=== PATIENT | male | born 1980 | race Caucasian/White ===

== ENCOUNTER 2024-06-18 19:33 | Inpatient (IN) | payer OTHER ==
--- NOTE | 2024-06-18 20:42 | XR ---
EXAMINATION TYPE: XR chest 2V DATE OF EXAM: 06/18/2024 8:36 PM CLINICAL INDICATION: Male, 44 years old with history of Chest Pain; COMPARISON: None TECHNIQUE: XR chest 2V Frontal view of the chest. FINDINGS: Lungs/Pleura: There is no evidence of pleural effusion, focal consolidation, or pneumothorax. Pulmonary vascularity: Unremarkable. Heart/mediastinum: Cardiomediastinal silhouette is unremarkable. Musculoskeletal: No acute osseous pathology. Other findings: None IMPRESSION: Low lung volumes with a generalized hazy appearance which could represent atelectasis versus pulmonar y edema correlate with serum BNP.
[2024-06-18 20:43] LABS: Basophils # (A) 0.1 k/uL (0-0.2); Basophils % (A) 1 %; Eosinophils # (A) 0.4 k/uL (0-0.7); Eosinophils % (A) 3 %; HCT 47.6 % (39.0-53.0); HGB 15.9 gm/dL (13.0-17.5); Lymphocytes # (A) 3.3 k/uL (1.0-4.8); Lymphocytes % (A) 29 %; MCH 30.1 pg (25.0-35.0); MCHC 33.4 g/dL (31.0-37.0); MCV 89.9 fL (80.0-100.0); Mean Platelet Volume 7.2; Monocytes # (A) 0.7 k/uL (0-1.0); Monocytes % (A) 6 %; Neutrophils # (A) 6.6 k/uL (1.3-7.7); Neutrophils % (A) 58 %; Platelet Count 334 k/uL (150-450); RBC 5.29 m/uL (4.30-5.90); RDW 12.8 % (11.5-15.5); WBC 11.4 k/uL (3.8-10.6)
[2024-06-18 20:51] LABS: INR 0.9 (<1.2); Partial Thromboplastin Time 27.1 sec (22.0-30.0); Prothrombin Time 9.9 sec (10.0-12.5)
[2024-06-18 20:56] LABS: ALT 34 U/L (4-49); African American GFR (CKD) >90 (>60 ml/min/1.73 sqM); Albumin 4.4 g/dL (3.5-5.0); Anion Gap 8 mmol/L; Blood Urea Nitrogen 13 mg/dL (9-20); Calcium 9.8 mg/dL (8.4-10.2); Carbon Dioxide 27 mmol/L (22-30); Chloride 100 mmol/L (98-107); Lipase 151 U/L (23-300); Non-African American GFR(CKD) >90 (>60 ml/min/1.73 sqM); Sodium 135 mmol/L (137-145); Total Bilirubin 0.5 mg/dL (0.2-1.3); Total Protein 7.4 g/dL (6.3-8.2)
[2024-06-18 21:08] LABS: AST 27 U/L (17-59); Alkaline Phosphatase 84 U/L (38-126); Glucose 502 mg/dL (74-99); Potassium 4.3 mmol/L (3.5-5.1)
--- NOTE | 2024-06-18 21:08 | ED ---
Chest Pain HPI - General Chief Complaint: Chest Pain Stated Complaint: Chest Pain Time Seen by Provider: 06/18/24 19:40 Source: patient Mode of arrival: ambulatory Limitations: no limitations - History of Present Illness Initial Comments: 44-year-old male with past medical history of hypertension, diabetes who presents emergency department with chest pain. States that he started having chest pain last Friday. The pain is described as a sharp squeezing sensation which starts in the middle of his chest and radiates to his left arm. The attacks will last for about 15 minutes before they subside. He denies taking any medications to alleviate the symptoms. He denies any provocative factors. He denies associated shortness of breath. No nausea or vomiting. No diaphoresis. He has no history of cardiac disease. He does have hypertension and diabetes and is supposed to take prescribed medications but does not. He did have an episode of chest pain this evening which prompted him to come into the emergency department but denies any active chest pain at this time. No history of DVT or PE. No calf pain or swelling. No other alleviating, precipitating or modifying factors - Related Data Home Medications Medication Instructions Recorded Confirmed No Known Home Medications 06/18/24 06/18/24 Allergies Allergy/AdvReac Type Severity Reaction Status Date / Time No Known Allergies Allergy Verified 06/18/24 20:13 Review of Systems ROS Statement: Those systems with pertinent positive or pertinent negative responses have been documented in the HPI. ROS Other: All systems not noted in ROS Statement are negative. Past Medical History Past Medical History: Diabetes Mellitus History of Any Multi-Drug Resistant Organisms: None Reported Past Surgical History: No Surgical Hx Reported Smoking Status: Current every day smoker Past Alcohol Use History: Occasional Past Drug Use History: None Reported General Exam Limitations: no limitations General appearance: alert, in no apparent distress Head exam: Present: atraumatic, normocephalic, normal inspection Eye exam: Present: normal appearance, PERRL, EOMI. Absent: scleral icterus, conjunctival injection, periorbital swelling ENT exam: Present: normal exam, mucous membranes moist Neck exam: Present: normal inspection. Absent: tenderness, meningismus, lymphadenopathy Respiratory exam: Present: normal lung sounds bilaterally. Absent: respiratory distress, wheezes, rales, rhonchi, stridor Cardiovascular Exam: Present: regular rate, normal rhythm, normal heart sounds. Absent: systolic murmur, diastolic murmur, rubs, gallop, clicks GI/Abdominal exam: Present: soft, normal bowel sounds. Absent: distended, tenderness, guarding, rebound, rigid Extremities exam: Present: normal inspection, full ROM, normal capillary refill. Absent: tenderness, pedal edema, joint swelling, calf tenderness Back exam: Present: normal inspection Neurological exam: Present: alert, oriented X3, CN II-XII intact Psychiatric exam: Present: normal affect, normal mood Skin exam: Present: warm, dry, intact, normal color. Absent: rash Course Vital Signs 06/18/24 06/18/24 06/18/24 19:35 20:05 21:40 Temperature 98.1 F Pulse Rate 85 91 90 Respiratory 18 20 18 Rate Blood Pressure 211/118 171/104 166/105 O2 Sat by Pulse 97 95 94 L Oximetry Chest Pain MDM - MDM Was pt. sent in by a medical professional or institution (, PA, CONTENT CREATION MANAGER, urgent care, hospital, or [facility]...) When possible be specific @ -No Did you speak to anyone other than the patient for history (EMS, parent, family, police, friend...)? What history was obtained from this source @ -Spoke with the patient's Did you review nursing and triage notes (agree or disagree)? Why? @ -I reviewed and agree with nursing and triage notes Were old charts reviewed (outside hosp., previous admission, EMS record, old EKG, old radiological studies, urgent care reports/EKG's, [facility] records)? Report findings @ -No old charts were reviewed Differential Diagnosis (chest pain, altered mental status, abdominal pain women, abdominal pain men, vaginal bleeding, weakness, fever, dyspnea, syncope, headache, dizziness, GI bleed, back pain, seizure, CVA, palpatations, mental health, musculoskeletal)? @ -Differential Chest Pain: Stable Angina, Unstable Angina, STEMI, NSTEMI Aortic Dissection, Pneumothorax, M usculoskeletal, Esophageal Spasm GERD, Cholecystitis, Pancreatitis, Zoster, this is not meant to be an all-inclusive list. EKG interpreted by me (3pts min.). @ -Yes and demonstrates sinus rhythm with a rate of 88. CA interval 174. QRS 96. QTc of 379. No acute ST segment elevations or depressions X-rays interpreted by me (1pt min.). @ -Yes and demonstrates hazy appearanceatelectasis versus pulmonary edema CT interpreted by me (1pt min.). @ -None done U/S interpreted by me (1pt. min.). @ -None done What testing was considered but not performed or refused? (CT, X-rays, U/S, labs)? Why? @ -None What meds were considered but not given or refused? Why? @ -None Did you discuss the management of the patient with other professionals (professionals i.e. DrKatlin, PA, CONTENT CREATION MANAGER, lab, RT, psych nurse, perinatal social worker, electrophysiology tech, teacher, corporation officer, mental health case manager)? Give summary @ -Discussed the case with Dr. Apple. Spoke with Dr. Coleman Was smoking cessation discussed for >3mins.? @ -No Was critical care preformed (if so, how long)? @ -yes, 35 minutes for nstemi Were there social determinants of health that impacted care today? How? (Homelessness, low income, unemployed, alcoholism, drug addiction, transportation, low edu. Level, literacy, decrease access to med. care, fci, rehab)? @ -No Was there de-escalation of care discussed even if they declined (Discuss DNR or withdrawal of care, Hospice)? DNR status @ -No What co-morbidities impacted this encounter? (DM, HTN, Smoking, COPD, CAD, Cancer, CVA, ARF, Chemo, Hep., AIDS, mental health diagnosis, sleep apnea, morbid obesity)? @ -Untreated hypertension and diabetes Was patient admitted / discharged? Hospital course, mention meds given and route, prescriptions, significant lab abnormalities, going to OR and other pertinent info. @ -Upon arrival patient seen and evaluated in room 1. Thorough history and physical exam was performed. Patient placed on continuous pulse ox and cardiac monitoring. Twelve-lead EKG is obtained. Laboratory studies are conducted. Cardiac enzyme is elevated. Patient is heparinized as he has no contraindications. No active chest pain at this time. He already took 324 mg aspirin this morning. Patient given a beta-audie for his hypertension. Spoke with Dr. Apple. Patient will be made n.p.o. at midnight. Echo was ordered. Patient will be admitted to Dr. Coleman Undiagnosed new problem with uncertain prognosis? @ -No Drug Therapy requiring intensive monitoring for toxicity (Heparin, Nitro, Insulin, Cardizem)? @ -No Were any procedures done? @ -No Diagnosis/symptom? @ -Acute chest pain, NSTEMI Acute, or Chronic, or Acute on Chronic? @ -Acute Uncomplicated (without systemic symptoms) or Complicated (systemic symptoms)? @ -Complicated Side effects of treatment? @ -No Exacerbation, Progression, or Severe Exacerbation? @ -No Poses a threat to life or bodily function? How? (Chest pain, [place], [place], pneumonia, PE, COPD, DKA, ARF, appy, cholecystitis, CVA, Diverticulitis, Homicidal, Suicidal, threat to staff... and all critical care pts) @ -Yes as patient has diagnosed NSTEMI Disposition Clinical Impression: Chest pain, NSTEMI (non-ST elevated myocardial infarction), Hyperglycemia Disposition: ADMITTED IP TO THIS [facility] Condition: Serious Is patient prescribed a controlled substance at d/c from ED?: No Time of Disposition: 22:10 Decision to Admit Reason: Admit from EC Decision Date: 06/18/24 Decision Time: 22:10
[2024-06-18] MEDS: HEPARIN SODIUM 1,000 UN/ML (10ML VL) IV ONE (21:34)
[2024-06-18] MEDS: HEPARIN SOD,PORK IN 0.45% NACL 25,000 UNIT in 0.45% NACL 1 250ML.BAG IV SCH (21:34)
[2024-06-18] MEDS ORDERED: DEXTROSE 50% SYRINGE 50 ML IVP PRN ×2 (22:05)
[2024-06-18] MEDS ORDERED: NALOXONE 0.4 MG/ML 1 ML VIAL IV PRN (22:10)
[2024-06-18] MEDS: INSULIN ASPART (NovoLOG) 100 UNIT/ML VIAL SQ SCH (22:34)
[2024-06-18 22:39] LABS: Glucose,Whole Blood 340 mg/dL (70-110)
[2024-06-18] MEDS: SODIUM CHLORIDE 0.9% 1,000 ML IV SCH (23:03)
[2024-06-18] MEDS: METOPROLOL TARTRATE 50 MG TAB PO STA (23:03)
[2024-06-19 03:22] LABS: Basophils # (A) 0.1 k/uL (0-0.2); Basophils % (A) 1 %; Eosinophils # (A) 0.4 k/uL (0-0.7); Eosinophils % (A) 4 %; HCT 44.3 % (39.0-53.0); Lymphocytes # (A) 4.6 k/uL (1.0-4.8); Lymphocytes % (A) 42 %; MCH 30.4 pg (25.0-35.0); MCV 89.4 fL (80.0-100.0); Mean Platelet Volume 7.3; Monocytes # (A) 0.7 k/uL (0-1.0); Monocytes % (A) 6 %; Neutrophils # (A) 4.9 k/uL (1.3-7.7); Neutrophils % (A) 45 %; Platelet Count 310 k/uL (150-450); RBC 4.95 m/uL (4.30-5.90); RDW 13.2 % (11.5-15.5); WBC 10.8 k/uL (3.8-10.6)
[2024-06-19 03:27] LABS: Partial Thromboplastin Time 29.1 sec (22.0-30.0); Prothrombin Time 10.7 sec (10.0-12.5)
[2024-06-19] MEDS: HEPARIN SODIUM 1,000 UN/ML (10ML VL) IV PRN (04:43)
[2024-06-19 06:16] LABS: Glucose,Whole Blood 290 mg/dL (70-110)
[2024-06-19] MEDS: INSULIN ASPART (NovoLOG) 100 UNIT/ML VIAL SQ SCH (06:49)
[2024-06-19] MEDS ORDERED: INSULIN ASPART (NovoLOG) 100 UNIT/ML VIAL SQ SCH (07:30)
[2024-06-19] MEDS: ASPIRIN 81 MG PO SCH (08:53)
[2024-06-19] MEDS ORDERED: ALPRAZolam 0.25 MG TAB PO PRN (09:59)
[2024-06-19] MEDS ORDERED: NITROGLYCERIN SL TABS 0.4 MG TAB SUBLINGUAL PRN (09:59)
[2024-06-19] MEDS ORDERED: ALPRAZolam 0.5 MG TAB PO PRN (09:59)
--- NOTE | 2024-06-19 09:59 | P.CRDCN ---
History of Present Illness Consult date: 06/19/24 Reason for Consult (text): NSTEMI History of present illness: This is a 44-year-old male with past medical history of diabetes mellitus type 2 and hypertension but not taking medications, and tobacco use and dependence. Patient presented to the emergency center due to chest pain in the across middle of his chest and radiating to both arms. Pains started last Friday on and off. He thinks it sometimes is related to activity and can stop and pain resolves. It can also happen randomly. The pain lasted for about 15 minutes and then subsid es. No previous history of cardiac disease and no FMH of CAD. He has radiation to the bilateral arms to the back of the upper arms. No nausea, no sweats and no shortness of breath. Regarding diabetes, he has been a diabetic for 3 to 4 years and not taking medications was supposed to be on metformin. He is also had high blood pressure without medication. He is currently a smoker. He drinks 8-9 beers per week. He denies any drug use or marijuana use. Initial blood pressure 211/118. Blood pressure 147/87, heart rate 75, pulse ox 99% on room air. Patient has been started on heparin drip and status post 1 dose of Lopressor. EKG: Sinus rhythm with no acute ST-T wave changes. Chest x-ray: Possible atelectasis versus pulmonary edema. Laboratory studies: Initial WBC 11.4 now 10.8, hemoglobin 15. Sodium 135, potassium 4.3, creatinine 0.63. Troponin 0.113, 0.172 and 0.242. Magnesium 2 .0. Liver function test normal. Lipase 151. proBNP 63. Patient presented with blood sugar of 502. Home cardiac medications: None Review Of Systems: At the time of my exam: CONSTITUTIONAL: Denies fever or chills. HEENT: Denies blurred vision, vision changes, or eye pain. Denies hemoptysis CARDIOVASCULAR: Denies chest pain. Denies orthopnea. Denies PND. Denies palpitations RESPIRATORY: Denies shortness of breath. GASTROINTESTINAL: Denies abdominal pain. Denies nausea or vomiting. HEMATOLOGIC: Denies bleeding disorders. GENITOURINARY: Denies any blood in urine. SKIN: Denies puritis. Denies rash. Physical examination: Gen: This is a morbidly obese 44-year-old male in no acute distress VS: reviewed HEENT: Head is atraumatic, normocephalic. Pupils equal, round. Sclerae is anicteric. NECK: Supple. No JVD. LUNGS: Clear to auscultation. No wheezes or rhonchi. No intercostal retractio ns. HEART: Regular rate and rhythm. No murmur. ABDOMEN: Soft No tenderness. EXTREMITIES: No pedal edema. No calf tenderness. NEUROLOGICAL: Patient is awake, alert and oriented x3. Assessment: Non-ST elevated [place] Diabetes mellitus type 2, A1C pending Hypertension Tobacco use and dependence Morbid obesity Medical noncompliance Plan: Continue heparin drip Start patient on aspirin 81 mg daily, Lipitor 80 mg daily, losartan 25 mg dailly Obtain TSH and free T4 Obtain lipid panel Obtain 2-D echocardiogram and Doppler study to assess cardiac structure and function Schedule patient for cardiac catheterization today with Dr. Pascal Smoking cessation discussed with the patient Medical compliance discussed with the patient Further recommendations to follow based upon clinical course Thank you kindly for this consultation. Nurse practitioner note has been reviewed, I agree with documented findings and plan of care. Patient was seen and examined. Past Medical History Past Medical History: Diabetes Mellitus History of Any Multi-Drug Resistant Organisms: None Reported Past Surgical History: No Surgical Hx Reported Past Psychological History: No Psychological Hx Reported Smoking Status: Current every day smoker Past Alcohol Use History: Occasional Past Drug Use History: None Reported Medications and Allergies Home Medications Medication Instructions Recorded Confirmed Type No Known Home Medications 06/18/24 06/18/24 History Allergies Allergy/AdvReac Type Severity Reaction Status Date / Time No Known Allergies Allergy Verified 06/18/24 20:13 Physical Exam Vitals: Vital Signs Temp Pulse Pulse Resp BP BP Pulse Ox 06/19/24 04:00 97.6 F 75 18 147/87 99 06/19/24 02:00 76 06/18/24 23:42 97.6 F 76 18 133/82 96 06/18/24 23:06 88 20 154/103 94 L 06/18/24 21:40 90 18 166/105 94 L 06/18/24 20:05 91 20 171/104 95 06/18/24 19:35 98.1 F 85 18 211/118 97 Intake and Output 06/18/24 06/19/24 06/19/24 22:59 06:59 14:59 Intake Total 71.566 Balance 71.566 Intake: Intake, IV Titration 71.566 Amount Heparin Sod,Pork in 0.45% 71.566 NaCl 25,000 unit In 0.45 % NaCl 1 250ml.bag @ 6.88 UNITS/KG/HR 9.986 mls/hr IV .Q24H [facility] Rx#: [id number] Other: Voiding Method Toilet Weight 145.15 kg 136.3 kg Results 06/19/24 03:09 06/18/24 20:26 Cardiac Enzymes 06/18/24 06/18/24 06/18/24 Range/Units 20:26 20: 23:44 AST 27 (17-59) U/L Troponin I 0.113 H* 0.172 H* (0.000-0.034) ng/mL 06/19/24 Range/Units 03:09 AST (17-59) U/L Troponin I 0.242 H* (0.000-0.034) ng/mL Coagulation 06/18/24 06/19/24 Range/Units 20:26 03:09 PT 9.9 L 10.7 (10.0-12.5) sec APTT 27.1 29.1 (22.0-30.0) sec CBC 06/18/24 06/19/24 Range/Units 20:26 03:09 WBC 11.4 H 10.8 H (3.8-10.6) k/uL RBC 5.29 4.95 (4.30-5.90) m/uL Hgb 15.9 15.0 (13.0-17.5) gm/dL Hct 47.6 44.3 (39.0-53.0) % Plt Count 334 310 (150-450) k/uL Comprehensive Metabolic Panel 06/18/24 Range/Units 20:26 Sodium 135 L (137-145) mmol/L Potassium 4.3 (3.5-5.1) mmol/L Chloride 100 (98-107) mmol/L Carbon Dioxide 27 (22-30) mmol/L BUN 13 (9-20) mg/dL Creatinine 0.63 L (0.66-1.25) mg/dL Glucose 502 H* (74-99) mg/dL Calcium 9.8 (8.4-10.2) mg/dL AST 27 (17-59) U/L ALT 34 (4-49) U/L Alkaline Phosphatase 84 (38-126) U/L Total Protein 7.4 (6.3-8.2) g/dL Albumin 4.4 (3.5-5.0) g/dL Current Medications Generic Name Dose Route Start Last Admin Trade Name Gerq PRN Reason Stop Dose Admin Dextrose/Water 25 ml 06/18/24 22:05 Dextrose 50% Syringe 50 Ml IVP PER PROTOCOL PRN Hypoglycemia Protocol Dextrose/Water 50 ml 06/18/24 22:05 Dextrose 50% Syringe 50 Ml IVP PER PROTOCOL PRN Hypoglycemia Protocol Heparin Sodium (Porcine) 0 unit 06/18/24 21:23 06/19/24 04:43 Heparin Sodium 1,000 Un/Ml (10ml Vl) IV 4,000 unit PER PROTOCOL PRN Administration Low PTT Protocol Heparin Sodium/Sodium Chloride 250 mls @ 9.986 mls/hr 06/18/24 21:30 06/19/24 04:44 25,000 unit/ Sodium Chloride IV 9.88 units/kg/hr .Q24H JUAN 14.341 mls/hr Titration Protocol 6.88 UNITS/KG/HR Sodium Chloride 1,000 mls @ 75 mls/hr 06/18/24 22:15 06/18/24 23:03 Saline 0.9% IV 75 mls/hr .[id number] JUAN Administration Insulin Aspart 0 unit 06/19/24 07:30 06/19/24 06:49 Insulin Aspart (Novolog) 100 Unit/Ml Vial SQ 5 unit ACHS JUAN Administration Protocol Naloxone HCl 0.2 mg 06/18/24 22:10 Naloxone 0.4 Mg/Ml 1 Ml Vial IV Q2M PRN Opioid Reversal Intake and Output 06/18/24 06/19/24 06/19/24 22:59 06:59 14:59 Intake Total 71.566 Balance 71.566 Intake: Intake, IV Titration 71.566 Amount Heparin Sod,Pork in 0.45% 71.566 NaCl 25,000 unit In 0.45 % NaCl 1 250ml.bag @ 6.88 UNITS/KG/HR 9.986 mls/hr IV .Q24H [facility] Rx#: [id number] Other: Voiding Method Toilet Weight 145.15 kg 136.3 kg 06/19/24 03:09 06/18/24 20:26
[2024-06-19] MEDS: ASPIRIN 325 MG TAB PO STA (11:16)
[2024-06-19] MEDS: ATORVASTATIN 80 MG TAB PO STA (11:16)
[2024-06-19] MEDS: LOSARTAN 25 MG TAB PO SCH (11:16)
[2024-06-19 11:45] LABS: Glucose,Whole Blood 239 mg/dL (70-110)
[2024-06-19] MEDS: SODIUM CHLORIDE 0.9% 1,000 ML IV ONE (13:50)
[2024-06-19] MEDS ORDERED: LIDOCAINE 1% INJ 10MG/ML (20 ML MDV) ONE (14:02)
[2024-06-19] MEDS ORDERED: VERAPAMIL 2.5 MG/ML 2 ML AMP ONE (14:02)
[2024-06-19] MEDS ORDERED: fentaNYL (PF) 50 MCG/ML 2 ML AMP ONE (14:02)
[2024-06-19] MEDS ORDERED: HEPARIN SODIUM 1,000 UN/ML (10ML VL) ONE (14:02)
[2024-06-19] MEDS: MIDAZOLAM 2 MG/2 ML VIAL IVP ONE (14:06)
[2024-06-19] MEDS: fentaNYL (PF) 50 MCG/ML 2 ML AMP IVP ONE (14:07)
[2024-06-19] MEDS: VERAPAMIL SYRINGE (5 MG/10 ML) INTRAARTER ONE (14:10)
[2024-06-19] MEDS: HEPARIN SODIUM 1,000 UN/ML (10ML VL) IV ONE (14:12)
[2024-06-19] MEDS ORDERED: TICAGRELOR 90 MG TAB ONE (14:20)
[2024-06-19] MEDS: TICAGRELOR 90 MG TAB PO ONE (14:21)
[2024-06-19] MEDS: HEPARIN SODIUM 1,000 UN/ML (10ML VL) IVP ONE (14:34)
[2024-06-19] MEDS: IOPAMIDOL-370 200ML BTL INJ ONE (14:40)
--- NOTE | 2024-06-19 15:15 | CA ---
Transthoracic Echo Report Name: Josh López Age: 44 Gender: M : 1980 Exam Date: 06/19/2024 12:02 Exam Location: [place] [facility] Ht (in): 72 Wt (lb): 320 Ordering Physician: Naomi Downey DO Attending/Referring Phys: [id number], Shayan Massage Operator Lian Dueñas RDCS Procedure CPT: Indications: nstemi Cardiac Hx: Technical Quality: Very technically difficult study Contrast 1: Definity Total Dose (mL): 2 Contrast 2: Total Dose (mL): MEASUREMENTS (Male / Female) Normal Values 2D ECHO LV Diastolic Diameter PLAX 4.6 cm 4.2 - 5.9 / 3.9 - 5.3 cm LV Systolic Diameter PLAX 2.2 cm IVS Diastolic Thickness 1.6 cm 0.6 - 1.0 / 0.6 - 0.9 cm LVPW Diastolic Thickness 1.6 cm 0.6 - 1.0 / 0.6 - 0.9 cm LV Relative Wall Thickness 0.7 RV Internal Dim ED PLAX 3.1 cm LA Volume 58.2 cm??? 18 - 58 / 22 - 52 cm??? LA Volume Index 20.9 cm???/m??? 16 - 28 cm???/m??? M-MODE Aortic Root Diameter MM 3.4 cm LA Systolic Diameter MM 3.2 cm LA Ao Ratio MM 0.9 AV Cusp Separation MM 2.2 cm DOPPLER AV Peak Velocity 148.1 cm/s AV Peak Gradient 8.8 mmHg AV Mean Velocity 95.1 cm/s AV Mean Gradient 4.2 mmHg AV Velocity Time Integral 30.0 cm LVOT Peak Velocity 128.8 cm/s LVOT Peak Gradient 6.6 mmHg LVOT Velocity Time Integral 23.3 cm MV Area PHT 3.3 cm??? Mitral E Point Velocity 81.7 cm/s Mitral A Point Velocity 98.4 cm/s Mitral E to A Ratio 0.8 MV Deceleration Time 232.6 ms MV E' Velocity 6.7 cm/s Mitral E to MV E' Ratio 12.2 FINDINGS Left Ventricle Moderately increased left ventricular wall thickness. Left ventricular cavity size normal. Normal left ventricular systolic function with no obvious regional wall motion abnormalities. Left ventricular ejection fraction is estimated at 55-60 %. Grade 1 diastolic dysfunction. Right Ventricle Normal right ventricular size and function. Right ventricular systolic pressure within normal limits. Right Atrium Normal right atrial size. Left Atrium Normal left atrial size. Mitral Valve Structurally normal mitral valve. No mitral stenosis, regurgitation or prolapse. Aortic Valve No aortic valve stenosis or regurgitation. Tricuspid Valve Structurally normal tricuspid valve. Trace tricuspid regurgitation. Pulmonic Valve No pulmonic stenosis. Pericardium No pericardial effusion. Aorta Normal size aortic root and proximal ascending aorta. CONCLUSIONS Moderate increased left ventricular wall thickness Left ventricular ejection fraction 55-60% No mitral regurgitation Trace tricuspid regurgitation No pericardial effusion Previewed by: Dr. Rahat Pascal DO (Electronically Signed) Final Date: 19 June 2024 15:15
[2024-06-19] MEDS: SYMBICORT 80-4.5 MCG INHALER INHALATION SCH (15:25)
--- NOTE | 2024-06-19 15:29 | P.HPIM ---
History of Present Illness H&P Date: 06/19/24 Chief Complaint: Chest pain This is a pleasant 44-year-old patient who follows with Dr. Jolanta Martell. Has a known history of diabetes and hypertension was not taking his medications. Patient is accompanied by his at the bedside. For about 7 days patient been having central chest pressure. On and off. Lasting anywhere from 15 to 20 minutes. Worse with activity. Has been feeling tired. No perspiration. Pain has been radiating down the arms. Yesterday symptoms were more pronounced decided to come in. Troponin is positive. Patient due to go down for cardiac catheterization with cardiology. Patient also was a smoker now down to 3 cigarettes a day. Review of systems: GEN.: Tired EYES: None HEENT: None NECK: None RESPIRATORY: Wheezing e CARDIOVASCULAR: As above GASTROINTESTINAL: None GENITOURINARY: None MUSCULOSKELETAL: None LYMPHATICS: None HEMATOLOGICAL: None PSYCHIATRY: None NEUROLOGICAL: None Social history: Patient is a [employer] manager. . Patient smoked a pack and a half a day for 23 years now down to 3 cigarettes a day. Drinks about 8-9 beers a week. Physical examination: VITAL SIGNS: 97.6, 77, 14, 146 x 96, 95% room air GENERAL: BMI 40.8, reclining bed awake not in distress. EYES: Pupils equal. Conjunctiva bryan l. HEENT: External appearance of nose and ears normal, oral cavity grossly normal. NECK: JVD not raised; masses not palpable. HEART: First and second heart sounds are normal; no edema. LUNGS: Respiratory rate normal; decreased breath sounds some wheezing. ABDOMEN: Soft, nontender, liver spleen not palpable, no masses palpable. PSYCH: Alert and oriented x3; mood and affect bryan l. MUSCULOSKELETAL:No Clubbing/cyanosis;muscles-grossly intact NEUROLOGICAL: Cranial nerves grossly intact; no facial asymmetry, power and sensation grossly intact. LYMPHATICS: No lymph nodes palpable in the axilla and neck INVESTIGATIONS, reviewed in the clinical context: June 19, 2024: White count 10.8 hemoglobin 15 platelets 310 June 18 8 potassium 4.3 BUN 13 creatinine 0.63 glucose 502 Troponin I 0.113, 0.172, 0.242 EKG tracing personally reviewed by me-normal sinus rhythm. Chest x-ray film personally reviewed by me-some pulmonary artery prominence Assessment plan: -Acute non-ST elevation myocardial infarction. Possibly had an CA as symptoms been present for about a week. Patient not been taking his medication for diabetes and blood pressure. Aspirin. Lipitor. Cozaar. IV heparin. Awaiting cardiac catheterization today -Essential hypertension. Patient had not been taking his medications prior. Cozaar. Lopressor -Nonketotic hyperosmolar hyperglycemia, patient not been taking his diabetic medications IV fluids -IV heparin monitoring Follow PTT -Diabetes mellitus type 2, patient not been taking his medications outpatient Levemir 16 units nightly. Sliding scale insulin. -COPD in a smoker Nicotine patch. Symbicort -Chronic nicotine dependence cigarette smoker Nicotine patch -Morbid obesity BMI 40.8 Weight loss measures Pending cardiac catheterization. Care was discussed with the patient at the bedside. Lifestyle changes discussed. Consult dietitian. Follow with cardiology Past Medical History Past Medical History: Diabetes Mellitus History of Any Multi-Drug Resistant Organisms: None Reported Past Surgical History: No Surgical Hx Reported Past Psychological History: No Psychological Hx Reported Smoking Status: Current every day smoker Past Alcohol Use History: Occasional Past Drug Use History: None Reported Medications and Allergies Home Medications Medication Instructions Recorded Confirmed Type No Known Home Medications 06/18/24 06/18/24 History Allergies Allergy/AdvReac Type Severity Reaction Status Date / Time No Known Allergies Allergy Verified 06/18/24 20:13 Physical Exam Vitals: Vital Signs Temp Pulse Pulse Pulse Resp BP BP 06/19/24 08:50 97.6 F 77 14 146/96 06/19/24 04:00 97.6 F 75 18 147/87 06/19/24 02:00 76 06/18/24 23:42 97.6 F 76 18 133/82 06/18/24 23:06 88 20 154/103 06/18/24 21:40 90 18 166/105 06/18/24 20:05 91 20 171/104 06/18/24 19:35 98.1 F 85 18 211/118 Pulse Ox 06/19/24 08:50 95 06/19/24 04:00 99 06/19/24 02:00 06/18/24 23:42 96 06/18/24 23:06 94 L 06/18/24 21:40 94 L 06/18/24 20:05 95 06/18/24 19:35 97 Intake and Output 06/18/24 06/19/2424 22:59 06:59 14:59 Intake Total 71.566 99.67 Balance 71.566 99.67 Intake: Intake, IV Titration 71.566 99.67 Amount Heparin Sod,Pork in 0.45% 71.566 99.67 NaCl 25,000 unit In 0.45 % NaCl 1 250ml.bag @ 6.88 UNITS/KG/HR 9.986 mls/hr IV .Q24H [facility] Rx#: [id number] Other: Voiding Method Toilet Toilet Weight 145.15 kg 136.3 kg Results CBC & Chem 7: 06/19/24 03:09 06/18/24 20:26 Labs: Abnormal Lab Results - Last 24 Hours (Table) 06/18/24 06/18/24 06/18/24 Range/Units 20:26 20:26 20:26 WBC 11.4 H (3.8-10.6) k/uL PT 9.9 L (10.0-12.5) sec APTT (22.0-30.0) sec Sodium 135 L (137-145) mmol/L Creatinine 0.63 L (0.66-1.25) mg/dL Glucose 502 H* (74-99) mg/dL POC Glucose (mg/dL) (70-110) mg/dL Hemoglobin A1c (<=6.0) % Troponin I (0.000-0.034) ng/mL Cholesterol (0.00-200.00) mg/dL 06/18/24 06/18/24 06/18/24 Range/Units 20:26 20:26 22:37 WBC (3.8-10.6) k/uL PT (10.0-12.5) sec APTT (22.0-30.0) sec Sodium (137-145) mmol/L Creatinine (0.66-1.25) mg/dL Glucose (74-99) mg/dL POC Glucose (mg/dL) 340 H (70-110) mg/dL Hemoglobin A1c (<=6.0) % Troponin I 0.113 H* (0.000-0.034) ng/mL Cholesterol 203.00 H (0.00-200.00) mg/dL 06/18/24 06/19/24 06/19/24 Range/Units 23:44 03:09 03:09 WBC 10.8 H (3.8-10.6) k/uL PT (10.0-12.5) sec APTT (22.0-30.0) sec Sodium (137-145) mmol/L Creatinine (0.66-1.25) mg/dL Glucose (74-99) mg/dL POC Glucose (mg/dL) (70-110) mg/dL Hemoglobin A1c 11.8 H (<=6.0) % Troponin I 0.172 H* (0.000-0.034) ng/mL Cholesterol (0.00-200.00) mg/dL 06/19/24 06/19/24 06/19/24 Range/Units 03:09 06:13 10:41 WBC (3.8-10.6) k/uL PT (10.0-12.5) sec APTT 32.1 H (22.0-30.0) sec Sodium (137-145) mmol/L Creatinine (0.66-1.25) mg/dL Glucose (74-99) mg/dL POC Glucose (mg/dL) 290 H (70-110) mg/dL Hemoglobin A1c (<=6.0) % Troponin I 0.242 H* (0.000-0.034) ng/mL Cholesterol (0.00-200.00) mg/dL 06/19/24 Range/Units 11:43 WBC (3.8-10.6) k/uL PT (10.0-12.5) sec APTT (22.0-30.0) sec Sodium (137-145) mmol/L Creatinine (0.66-1.25) mg/dL Glucose (74-99) mg/dL POC Glucose (mg/dL) 239 H (70-110) mg/dL Hemoglobin A1c (<=6.0) % Troponin I (0.000-0.034) ng/mL Cholesterol (0.00-200.00) mg/dL Thrombosis Risk Factor Assmnt - Choose All That Apply Any of the Below Risk Factors Present?: Yes Each Factor Represents 1 point: Age 41-60 years Other Risk Factors: No Other congenital or acquired thrombophilia - If yes, enter type in comment: No Thrombosis Risk Factor Assessment Total Risk Factor Score: 1 Thrombosis Risk Factor Assessment Level: Low Risk
[2024-06-19] MEDS ORDERED: MAG HYDROX/AL HYDROX/SIMETH 30 ML CUP PO PRN (15:33)
[2024-06-19] MEDS ORDERED: RX INFO: IV CONTRAST WAS GIVEN 1 EACH MISC MISCELLANE PRN (15:33)
[2024-06-19] MEDS ORDERED: ATROPINE SULFATE 0.1 MG/ML 10ML SYRINGE IV PRN (15:33)
[2024-06-19] MEDS ORDERED: ZOLPIDEM 5 MG TAB PO PRN (15:33)
--- NOTE | 2024-06-19 15:33 | P.PRCINT ---
Percutaneous Coronary Int. - Percutaneous Coronary Intervention Percutaneous Coronary Intervention: PROCEDURES PERFORMED: Left heart catheterization, bilateral coronary angiography, ultrasound guided arterial access, PCI mid RCA with a 4.0 x 18mm Xience CANDIDO, IVUS RCA INDICATION: non-STEMI CONSENT:I have discussed the risks, benefits and alternative therapies for the above-mentioned procedure and for both sedation/analgesia as well as necessary blood product administration, if indicated, as they pertain to this patient. The patient has indicated understanding and acceptance of the risks and procedures discussed. PROCEDURE: After the risks, benefits and alternatives of the above mentioned procedure explained in detail with the patient, informed consent was obtained. Patient was taken to the catheterization lab and prepped and draped in usual fashion. Ultrasound guidance was used to assess for arterial access. 1% lidocaine was used to anesthetize the right radial artery. A 6-Senegalese sheath was placed in the right radial artery using modified Seldinger technique and ultrasound guidance. Left coronary angiography was performed with a 5-Senegalese JL 3.5 catheter and right coronary angiography was performed with a 5-Senegalese FR5 catheter in various views. A 5-Senegalese FR5 catheter was inserted into the left ventricle and pressure measurements were obtained. the decision was made to perform PCI of the RCA. Heparin was given. A 6-Senegalese JL 0.75 tablet using gauge the RCA. A 0.014 BMW wire was advanced the distal RCA. Per dilation was performed with a 3.5 x 12 mm balloon. Intravascular ultrasound was performed which showed reference vessel 4.0-4.2 mm. A 4.0 x 18 mm Xience CANDIDO was placed in the mid RCA. Repeat IVUS showed well expanded stent with more distal 20-30% stenosis. Final angiograms were performed. Pre- intervention there was 90% stenosis and PAOLA-3 flow and postintervention there was 0% stenosis and PAOLA-3 flow. The right radial sheath was removed and a TR band was placed with hemostasis achieved. The patient tolerated the procedure well. Patient was transported back to the post catheterization holding area in stable condition. Conscious Sedation: Patient was monitored under the direct supervision of myself for conscious sedation using Versed and fentanyl for a total duration of 47 minutes HEMODYNAMICS: Aorta: 160/102 LV: 158/5, LVEDP 16 SELECTIVE CORONARY ARTERIOGRAPHY: LEFT MAIN: The left main is a large caliber vessel which bifurcates into the LAD and circumflex. There is no significant stenosis. LEFT ANTERIOR DESCENDING CORONARY ARTERY: LAD is a large caliber vessel which wraps around to the apex. There is a proximal LAD 20-30% stenosis and otherwise normal. LEFT CIRCUMFLEX CORONARY ARTERY: Left circumflex is a moderate caliber vessel without significant stenosis. RIGHT CORONARY ARTERY: The right coronary artery is a large caliber vessel which gives off a PDA and PLV branch and is the dominant vessel. There is mild diffuse 10-20% stenosis and more focal mid RCA 90% stenosis FINAL IMPRESSION: 1. CAD as described above with 90% mid RCA stenosis, 20-30% proximal LAD stenosis 2. S/p PCI mid RCA with a 4.0 x 18mm Xience CANDIDO 3. High normal left sided filling pressures PLAN: 1. Aggressive risk factor modification per most recent ACC/AHA guidelines. 2. Continue dual antiplatelets with aspirin and Brillinta for 12 months 3. Tobacco cessation discussed with patient and patient agreeable. Gave patient referral to [place] [facility]uit [facility].
[2024-06-19 16:58] LABS: Glucose,Whole Blood 218 mg/dL (70-110)
[2024-06-19] MEDS: METOPROLOL TARTRATE 25 MG TAB PO SCH (17:40)
[2024-06-19] MEDS: LOSARTAN 25 MG TAB PO STA (17:40)
[2024-06-19] MEDS: SODIUM CHLORIDE 0.9% 1,000 ML in EMPTY BAG 1 BAG IV SCH (17:41)
[2024-06-19] MEDS: ATORVASTATIN 80 MG TAB PO SCH (19:10)
[2024-06-19 20:11] LABS: Glucose,Whole Blood 256 mg/dL (70-110)
[2024-06-19] MEDS: INSULIN DETEMIR (LEVEMIR) 100 UNIT/ML SYR SQ SCH (20:43)
[2024-06-19] MEDS: TICAGRELOR 90 MG TAB PO SCH (20:43)
[2024-06-20 06:16] LABS: Glucose,Whole Blood 199 mg/dL (70-110)
[2024-06-20 06:55] LABS: Chol/HDL Ratio 5.52 Ratio; LDL Cholesterol,Calculated 83.8 mg/dL (0.0-131.0)
[2024-06-20] MEDS ORDERED: HEPARIN SODIUM,PORCINE (1 ML) 2,500 UNIT in SODIUM CHLORIDE 0.9% 250 ML IRRIGATION PRN (07:00)
[2024-06-20] MEDS ORDERED: HEPARIN SODIUM,PORCINE 10,000 UNIT in SODIUM CHLORIDE 0.9% 1,000 ML IRRIGATION PRN (07:00)
[2024-06-20 08:37] LABS: African American GFR (CKD) >90 (>60 ml/min/1.73 sqM); Non-African American GFR(CKD) >90 (>60 ml/min/1.73 sqM)
[2024-06-20] MEDS: LOSARTAN 50 MG TAB PO SCH (08:53)
[2024-06-20 09:56] VITALS: BP 160/106; PULSE 75; RESP 16; TEMP 98.1
--- NOTE | 2024-06-20 10:52 | P.PN ---
Subjective Progress Note Date: 06/20/24 Reason for Consult (text): NSTEMI History of present illness: This is a 44-year-old male with past medical history of diabetes mellitus type 2 and hypertension but not taking medications, and tobacco use and dependence. Patient presented to the emergency center due to chest pain in the across middle of his chest and radiating to both arms. Pains started last Friday on and off. He thinks it sometimes is related to activity and can stop and pain resolves. It can also happen randomly. The pain lasted for about 15 minutes and then subsides. No previous history of cardiac disease and no FMH of CAD. He has radiation to the bilateral arms to the back of the upper arms. No nausea, no sweats and no shortness of breath. Regarding diabetes, he has been a diabetic for 3 to 4 years and not taking medications was supposed to be on metformin. He is also had high blood pressure without medication. He is currently a smoker. He drinks 8-9 beers per week. He denies any drug use or marijuana use. Initial blood pressure 211/118. Blood pressure 147/87, heart rate 75, pulse ox 99% on room air. Patient has been started on heparin drip and status post 1 dose of Lopressor. EKG: Sinus rhythm with no acute ST-T wave changes. Chest x-ray: Possible atelectasis versus pulmonary edema. Laboratory studies: Initial WBC 11.4 now 10.8, hemoglobin 15. Sodium 135, potassium 4.3, creatinine 0.63. Troponin 0.113, 0.172 and 0.242. Magnesium 2.0. Liver function test normal. Lipase 151. proBNP 63. Patient presented with blood sugar of 502. Home cardiac medications: None 06/20 Yesterday, patient underwent LHC which revealed CAD 90% mid RCA, 20 to 30% proximal LAD and he subsequently underwent PCI of the mid RCA with CANDIDO. Patient to be on dual antiplatelet therapy for 12 months. Echocardiogram reveals EF 55 to 60%, trace tricuspid regurgitation. No pericardial effusion. No mitral regurgitation. Results of testing have been reviewed with the patient. He is agreeable to stop smoking and get blood sugars under control and be compliant with medications. Blood pressures have been elevated 160/106, heart rate 75, pulse ox 96% on room air. Repeat creatinine 0.48. TSH was 1.7. Triglycerides 281, cholesterol 171, LDL 83 and HDL 31. Physical examination: Gen: This is a morbidly obese 44-year-old male in no acute distress VS: reviewed HEENT: Head is atraumatic, normocephalic. Pupils equal, round. Sclerae is anicteric. NECK: Supple. No JVD. LUNGS: Clear to auscultation. No wheezes or rhonchi. No intercostal retractions. HEART: Regular rate and rhythm. No murmur. ABDOMEN: Soft No tenderness. EXTREMITIES: No pedal edema. No calf tenderness. NEUROLOGICAL: Patient is awake, alert and oriented x3. Assessment: Non-ST elevated AL Diabetes mellitus type 2, A1C 11.8 Hypertension Tobacco use and dependence Morbid obesity Medical noncompliance Plan: Continue patient on aspirin 81 mg daily, Lipitor 80 mg daily, Lopressor 25 mg twice daily, Brilinta 90 mg twice daily Increase losartan to 100 mg daily Patient will be provided with the [place] quit line information at discharge Patient instructed to monitor blood pressure at home Patient is cleared for discharge from cardiology and will follow-up with Dr. Pascal in 1 week. Nurse practitioner note has been reviewed, I agree with documented findings and plan of care. Patient was seen and examined. Objective - Vital Signs Vital signs: Vital Signs Temp 97.7 F 06/20/24 04:00 Pulse 67 06/20/24 04:00 Resp 18 06/20/24 04:00 BP 145/94 06/20/24 04:00 Pulse Ox 99 06/20/24 04:00 FiO2 Intake & Output 06/19/24 06/20/24 06/20/24 18:59 06:59 18:59 Intake Total 1304.67 200 Balance 1304.67 200 Weight 134.8 kg Intake: IV 200 Intake, IV Titration 624.67 Amount Heparin Sod,Pork in 0.45% 99.67 NaCl 25,000 unit In 0.45 % NaCl 1 250ml.bag @ 6.88 UNITS/KG/HR 9.986 mls/hr IV .Q24H [facility] Rx#: [id number] Sodium Chloride 0.9% 1, 525 000 ml @ 75 mls/hr IV . [id number] [facility] Rx#:[id number] Oral 480 200 Other: Voiding Method Toilet Toilet # Voids 2 1 - Labs CBC & Chem 7: 06/19/24 03:09 06/20/24 07:41 Labs: Abnormal Lab Results - Last 24 Hours (Table) 06/18/24 06/19/24 06/19/24 Range/Units 20:26 03:09 10:41 APTT 32.1 H (22.0-30.0) sec Creatinine (0.66-1.25) mg/dL POC Glucose (mg/dL) (70-110) mg/dL Hemoglobin A1c 11.8 H (<=6.0) % Triglycerides (0.00-149.00) mg/dL Cholesterol 203.00 H (0.00-200.00) mg/dL VLDL Cholesterol, Calc (5.00-40.00) mg/dL HDL Cholesterol (40.00-60.00) mg/dL 06/19/24 06/19/24 06/19/24 Range/Units 10:41 11:43 16:56 APTT (22.0-30.0) sec Creatinine (0.66-1.25) mg/dL POC Glucose (mg/dL) 239 H 218 H (70-110) mg/dL Hemoglobin A1c (<=6.0) % Triglycerides 281.00 H (0.00-149.00) mg/dL Cholesterol (0.00-200.00) mg/dL VLDL Cholesterol, Calc 56.20 H (5.00-40.00) mg/dL HDL Cholesterol 31.00 L (40.00-60.00) mg/dL 06/19/24 06/20/24 06/20/24 Range/Units 20:09 06:14 07:41 APTT (22.0-30.0) sec Creatinine 0.48 L (0.66-1.25) mg/dL POC Glucose (mg/dL) 256 H 199 H (70-110) mg/dL Hemoglobin A1c (<=6.0) % Triglycerides (0.00-149.00) mg/dL Cholesterol (0.00-200.00) mg/dL VLDL Cholesterol, Calc (5.00-40.00) mg/dL HDL Cholesterol (40.00-60.00) mg/dL
[2024-06-20 11:42] LABS: Glucose,Whole Blood 250 mg/dL (70-110)
[2024-06-20] MEDS: LOSARTAN 50 MG TAB PO STA (12:52)
--- NOTE | 2024-06-20 16:24 | P.DS ---
Providers Date of admission: 06/18/24 22:13 Expected date of discharge: 06/20/24 Attending physician: David Coleman Consults: 06/18/24 22:10 Consult Physician Urgent Consulting Provider: Yasmeen Antoine Consult Reason/Comments: nstemi Do you want consulting provider notified?: Already Contacted 06/19/24 15:33 Consult Physician Routine Consulting Provider: Yasmeen Antoine Consult Reason/Comments: Post Interventional Patient Do you want consulting provider notified?: Already Contacted Primary care physician: Jolanta Martell [facility] Course: Chief Complaint: Chest pain This is a pleasant 44-year-old patient who follows with Dr. Jolanta Martell. Has a known history of diabetes and hypertension was not taking his medications. Patient is accompanied by his at the bedside. For about 7 days patient been having central chest pressure. On and off. Lasting anywhere from 15 to 20 minutes. Worse with activity. Has been feeling tired. No perspiration. Pain has been radiating down the arms. Yesterday symptoms were more pronounced decided to come in. Troponin is positive. Patient due to go down for cardiac catheterization with cardiology. Patient also was a smoker now down to 3 cigarettes a day. June 20: Up in a chair. Comfortable. No chest pain or short of breath. at the bedside. Spoke at length about lifestyle changes. Questions answered. Medications reviewed. Patient told to keep a daily log of Accu-Cheks in the morning and blood pressure check. Patient go to see a dietitian before discharge. Discussion and discharge planning more than 35 minutes Social history: Patient is a motor vehicle retail parts professional. . Patient smoked a pack and a half a day for 23 years now down to 3 cigarettes a day. Drinks about 8-9 beers a week. Physical examination: VITAL SIGNS: 98.1, 75, 16, 96% room air GENERAL: Up in a chair comfortable EYES: Pupils equal. Conjunctiva bryan l. HEENT: External appearance of nose and ears normal, oral cavity grossly normal. NECK: JVD not raised; masses not palpable. HEART: First and second heart sounds are normal; no edema. LUNGS: Respiratory rate normal; decreased breath sounds some wheezing. ABDOMEN: Soft, nontender, liver spleen not palpable, no masses palpable. PSYCH: Alert and oriented x3; mood and affect bryan l. MUSCULOSKELETAL:No Clubbing/cyanosis;muscles-grossly intact INVESTIGATIONS, reviewed in the clinical context: LDL: 83.8 triglycerides 281 June 19, 2024: White count 10.8 hemoglobin 15 platelets 310 June 18 potassium 4.3 BUN 13 creatinine 0.63 glucose 502 Troponin I 0.113, 0.172, 0.242 EKG tracing personally reviewed by me-normal sinus rhythm. Chest x-ray film personally reviewed by me-some pulmonary artery prominence Assessment plan: -Acute non-ST elevation myocardial infarction. Possibly had an HI as symptoms been present for about a week. Patient not been taking his medication for diabetes and blood pressure. Aspirin. Lipitor. Cozaar. IV heparin. -Angioplasty stent to mid RCA. Aspirin. Brilinta -Essential hypertension. Patient had not been taking his medications prior. To admission Cozaar. Lopressor -Nonketotic hyperosmolar hyperglycemia, patient not been taking his diabetic medications IV fluids -IV heparin monitoring Follow PTT -Diabetes mellitus type 2, patient not been taking his medications outpatient Metformin 500 mg milligram p.o. twice daily. Start tomorrow. Farxiga 10 mg. Diabetic diet. -COPD in a smoker Nicotine patch. Symbicort -Chronic nicotine dependence cigarette smoker Nicotine patch -Morbid obesity BMI 40.8 Weight loss measures -Full code Disposition: Home Past Medical History Past Medical History: Diabetes Mellitus History of Any Multi-Drug Resistant Organisms: None Reported Past Surgical History: No Surgical Hx Reported Past Psychological History: No Psychological Hx Reported Smoking Status: Current every day smoker Past Alcohol Use History: Occasional Past Drug Use History: None Reported Plan - Discharge Summary Discharge Rx Participant: Yes New Discharge Prescriptions: New Aspirin 81 mg PO DAILY #30 tab Dapagliflozin Propanediol [Farxiga] 10 mg PO DAILY #30 tablet Atorvastatin [Lipitor] 80 mg PO HS #30 tab Metoprolol Tartrate [Lopressor] 25 mg PO BID #60 tab Nitroglycerin Sl Tabs [Nitrostat] 0.4 mg SUBLINGUAL Q5M PRN #30 tab PRN Reason: Chest Pain Ticagrelor [Brilinta] 90 mg PO BID #60 tab Losartan [Cozaar] 100 mg PO HS #30 tab metFORMIN HCL 500 mg PO BID #60 tablet Discharge Medication List Aspirin 81 mg PO DAILY #30 tab 06/20/24 [Rx] Atorvastatin [Lipitor] 80 mg PO HS #30 tab 06/20/24 [Rx] Dapagliflozin Propanediol [Farxiga] 10 mg PO DAILY #30 tablet 06/20/24 [Rx] Losartan [Cozaar] 100 mg PO HS #30 tab 06/20/24 [Rx] Metoprolol Tartrate [Lopressor] 25 mg PO BID #60 tab 06/20/24 [Rx] Nitroglycerin Sl Tabs [Nitrostat] 0.4 mg SUBLINGUAL Q5M PRN #30 tab 06/20/24 [Rx] Ticagrelor [Brilinta] 90 mg PO BID #60 tab 06/20/24 [Rx] metFORMIN HCL 500 mg PO BID #60 tablet 06/20/24 [Rx] Follow up Appointment(s)/Referral(s): Rahat Pascal DO [STAFF PHYSICIAN] - 1 Week (Patient to call office for appointment, as office is closed at time of discharge. Ensure office is aware this is a follow up appointment after a hospital stay.) Jolanta Martell DO [Primary Care Provider] - 1-2 days (Patient to call office for appointment, as office is closed at time of discharge. Ensure office is aware this is a follow up appointment after a hospital stay.) Patient Instructions/Handouts: *Surgery [facility] - After Heart Catheterization - [employer] Developer Instructions Activity/Diet/Wound Care/Special Instructions: Monitor BP at home and take list to your cardiology appointment Discharge Disposition: HOME SELF-CARE
[2024-06-21] MEDS ORDERED: LOSARTAN 50 MG TAB PO SCH (09:00)
== END 2024-06-20 13:15 | disposition home or self-care (01) | DRG 322 ==
LOC: EC 19:33 → 3SCARD 22:13
PROVIDERS: ADMIT Hospitalist; ATTEND Hospitalist
PROC: B240ZZ3 Ultrasonography of Single Coronary Artery, Intravascular (ICD-10-PCS; 2024-06-19)
PROC: 027034Z Dilation of Coronary Artery, One Artery with Drug-eluting Intraluminal Device, Percutaneous Approach (ICD-10-PCS; principal; 2024-06-19 13:00)
PROC: 4A023N7 Measurement of Cardiac Sampling and Pressure, Left Heart, Percutaneous Approach (ICD-10-PCS; 2024-06-19 13:00)
PROC: B2111ZZ Fluoroscopy of Multiple Coronary Arteries using Low Osmolar Contrast (ICD-10-PCS; 2024-06-19 13:00)
DX: I21.4 Non-ST elevation (NSTEMI) myocardial infarction (principal); N17.9 Acute kidney failure, unspecified; Z68.41 Body mass index [BMI] 40.0-44.9, adult; F10.20 Alcohol dependence, uncomplicated; I10 Essential (primary) hypertension; I25.10 Atherosclerotic heart disease of native coronary artery without angina pectoris; J44.9 Chronic obstructive pulmonary disease, unspecified; E66.01 Morbid (severe) obesity due to excess calories; F17.210 Nicotine dependence, cigarettes, uncomplicated; K21.9 Gastro-esophageal reflux disease without esophagitis; K22.4 Dyskinesia of esophagus; R73.9 Hyperglycemia, unspecified; I07.1 Rheumatic tricuspid insufficiency; Z91.199 Patient's noncompliance with other medical treatment and regimen due to unspecified reason; Z71.3 Dietary counseling and surveillance; Z71.6 Tobacco abuse counseling